=== PATIENT | male | born 1960 | race Caucasian/White ===

== ENCOUNTER 2021-03-13 21:57 | Emergency (ER) | payer MEDICAID, OTHER ==
[~2021-03-13] VITALS: Ht 175.3 cm; Wt 84.1 kg
[2021-03-13 21:58] VITALS: BP 123/70
[2021-03-13 23:06] LABS: BASOPHILS % (AUTO) 0.6 % (0.0-2.0); EOSINOPHILS % (AUTO) 2.1 % (1.0-6.0); HEMOGLOBIN 13.9 g/dL (13.5-17.5); LYMPHOCYTES # (AUTO) 2.8 K/uL (1.0-4.8); MEAN CORPUSCULAR HEMOGLOBIN 31.6 pg (26.0-34.0); MEAN CORPUSCULAR HGB CONC 34.8 G/dL (31.0-37.0); MEAN CORPUSCULAR VOLUME 91 fL (80-100); MONOCYTES # (AUTO) 0.7 K/uL (0.1-1.0); NEUTROPHILS # (AUTO) 4.4 K/uL (1.8-7.7); NEUTROPHILS % (AUTO) 54.3 % (40.0-70.0); PLATELET COUNT (AUTO) 234 K/uL (150-450); RED BLOOD CELL COUNT(AUTO) 4.41 MIL/uL (4.50-5.90); RED CELL DISTRIBUTION WIDTH 13.3 % (11.5-14.5)
[2021-03-13 23:22] LABS: ANION GAP 8 mmol/L (8-16); CALCIUM, TOTAL 8.7 mg/dL (8.8-10.5); CARBON DIOXIDE 29 mmol/L (22-29); CHLORIDE 103 mmol/L (98-107); CREATININE 0.95 mg/dL (0.60-1.30); GLOMERULAR FILTR. RATE CALC > 60 mL/min (>60); GLUCOSE,RANDOM 104 mg/dL (70-110); POTASSIUM 3.8 mmol/L (3.5-5.1); SODIUM SERUM 140 mmol/L (136-145); UREA NITROGEN, BLOOD 23 mg/dL (7-18)
[2021-03-13 23:29] LABS: ALANINE AMINOTRANSFERASE 80 U/L (12-78); ALBUMIN 4.2 g/dL (3.4-5.0); ALKALINE PHOSPHATASE 101 U/L (46-116); ASPARTATE AMINOTRANSFERASE 58 U/L (15-37); TOTAL PROTEIN, SERUM 7.7 g/dL (6.4-8.2)
== END 2021-03-13 23:11 | disposition left against medical advice (07) ==
LOC: EMS 21:57
DX: R44.0 Auditory hallucinations (principal); Z53.21 Procedure and treatment not carried out due to patient leaving prior to being seen by health care provider
CPT/HCPCS: 36415; 80053; 85025; G0480

== ENCOUNTER 2021-04-01 23:47 | Emergency (ER) | payer OTHER ==
[~2021-04-01] VITALS: Ht 172.7 cm; Wt 77.3 kg
[2021-04-02 00:51] LABS: BASOPHILS % (AUTO) 0.6 % (0.0-2.0); HEMATOCRIT 40.8 % (41-53); HEMOGLOBIN 13.9 g/dL (13.5-17.5); LYMPHOCYTES # (AUTO) 2.9 K/uL (1.0-4.8); MEAN CORPUSCULAR HEMOGLOBIN 31.5 pg (26.0-34.0); MEAN CORPUSCULAR HGB CONC 34.1 G/dL (31.0-37.0); MEAN CORPUSCULAR VOLUME 92 fL (80-100); MONOCYTES # (AUTO) 0.7 K/uL (0.1-1.0); MONOCYTES % (AUTO) 9.3 % (2.0-9.0); NEUTROPHILS # (AUTO) 4.1 K/uL (1.8-7.7); NEUTROPHILS % (AUTO) 51.1 % (40.0-70.0); PLATELET COUNT (AUTO) 201 K/uL (150-450); RED BLOOD CELL COUNT(AUTO) 4.42 MIL/uL (4.50-5.90); RED CELL DISTRIBUTION WIDTH 13.6 % (11.5-14.5)
[2021-04-02 00:55] LABS: ANION GAP 7 mmol/L (8-16); CALCIUM, TOTAL 8.8 mg/dL (8.8-10.5); CARBON DIOXIDE 30 mmol/L (22-29); CHLORIDE 107 mmol/L (98-107); CREATININE 1.26 mg/dL (0.60-1.30); GLOMERULAR FILTR. RATE CALC 58 mL/min (>60); GLUCOSE,RANDOM 117 mg/dL (70-110); POTASSIUM 4.4 mmol/L (3.5-5.1); SODIUM SERUM 144 mmol/L (136-145); UREA NITROGEN, BLOOD 21 mg/dL (7-18)
[2021-04-02 01:01] LABS: ALANINE AMINOTRANSFERASE 102 U/L (12-78); ALBUMIN 3.6 g/dL (3.4-5.0); ALKALINE PHOSPHATASE 106 U/L (46-116); ASPARTATE AMINOTRANSFERASE 58 U/L (15-37); BILIRUBIN,TOTAL 0.7 mg/dL (0.1-1.0); TOTAL PROTEIN, SERUM 7.1 g/dL (6.4-8.2)
[2021-04-02 04:28] VITALS: BP 127/83
== END 2021-04-02 04:41 | disposition home or self-care (01) ==
LOC: EMS 23:48
DX: R44.0 Auditory hallucinations (principal); F15.90 Other stimulant use, unspecified, uncomplicated; R00.2 Palpitations; I48.91 Unspecified atrial fibrillation; E11.9 Type 2 diabetes mellitus without complications; F17.210 Nicotine dependence, cigarettes, uncomplicated
CPT/HCPCS: 70450; 80053; 82962; 85025; 93005; 99285; G0480

== ENCOUNTER 2021-04-09 00:15 | Emergency (ER) | payer OTHER ==
[~2021-04-09] VITALS: Ht 172.7 cm; Wt 84.1 kg
[2021-04-09] MEDS ORDERED: MELA3TAB89 PO (00:22)
[2021-04-09] MEDS ORDERED: RISP1TAB48 PO (00:22)
[2021-04-09 00:35] LABS: GLUCOSE,POINT OF CARE 93 MG/DL (70-110)
[2021-04-09 02:18] LABS: COVID AG,FIA SOURCE NASOPHARYNGEAL
[2021-04-09 02:21] LABS: BASOPHILS % (AUTO) 0.8 % (0.0-2.0); EOSINOPHILS % (AUTO) 3.3 % (1.0-6.0); HEMATOCRIT 37.7 % (41-53); LYMPHOCYTES # (AUTO) 2.2 K/uL (1.0-4.8); LYMPHOCYTES % (AUTO) 38.4 % (22.0-44.0); MEAN CORPUSCULAR HEMOGLOBIN 31.5 pg (26.0-34.0); MEAN CORPUSCULAR HGB CONC 34.4 G/dL (31.0-37.0); MEAN CORPUSCULAR VOLUME 92 fL (80-100); MONOCYTES # (AUTO) 0.5 K/uL (0.1-1.0); MONOCYTES % (AUTO) 9.6 % (2.0-9.0); NEUTROPHILS # (AUTO) 2.7 K/uL (1.8-7.7); NEUTROPHILS % (AUTO) 47.9 % (40.0-70.0); PLATELET COUNT (AUTO) 172 K/uL (150-450); RED BLOOD CELL COUNT(AUTO) 4.12 MIL/uL (4.50-5.90); RED CELL DISTRIBUTION WIDTH 13.3 % (11.5-14.5)
[2021-04-09 02:27] LABS: ANION GAP 3 mmol/L (8-16); CALCIUM, TOTAL 8.4 mg/dL (8.8-10.5); CARBON DIOXIDE 30 mmol/L (22-29); CHLORIDE 105 mmol/L (98-107); CREATININE 0.93 mg/dL (0.60-1.30); GLOMERULAR FILTR. RATE CALC > 60 mL/min (>60); GLUCOSE,RANDOM 116 mg/dL (70-110); POTASSIUM 3.9 mmol/L (3.5-5.1); SODIUM SERUM 138 mmol/L (136-145); UREA NITROGEN, BLOOD 23 mg/dL (7-18)
[2021-04-09 02:27] LABS: AMPHET/METH SCREEN,URINE POSITIVE (NEGATIVE); BARBITURATE SCREEN, URINE NEGATIVE (NEGATIVE); BENZODIAZEPINES SCREEN,URINE NEGATIVE (NEGATIVE); CANNABINOID SCREEN,URINE NEGATIVE (NEGATIVE); COCAINE SCREEN,URINE NEGATIVE (NEGATIVE); METHADONE SCREEN, URINE NEGATIVE (NEGATIVE); OPIATE SCREEN,URINE NEGATIVE (NEGATIVE)
[2021-04-09 02:28] LABS: PHENCYCLIDINE SCREEN,URINE NEGATIVE (NEGATIVE)
[2021-04-09 02:33] LABS: ALANINE AMINOTRANSFERASE 116 U/L (12-78); ALBUMIN 3.7 g/dL (3.4-5.0); ALKALINE PHOSPHATASE 107 U/L (46-116); ASPARTATE AMINOTRANSFERASE 62 U/L (15-37); BILIRUBIN,TOTAL 0.8 mg/dL (0.1-1.0); TOTAL PROTEIN, SERUM 6.9 g/dL (6.4-8.2)
[2021-04-09 03:41] VITALS: BP 156/65
== END 2021-04-09 04:09 | disposition home or self-care (01) ==
LOC: EMS 00:16
DX: F20.9 Schizophrenia, unspecified (principal); Z20.822 Contact with and (suspected) exposure to COVID-19; F17.210 Nicotine dependence, cigarettes, uncomplicated; E11.9 Type 2 diabetes mellitus without complications; I48.91 Unspecified atrial fibrillation
CPT/HCPCS: 36415; 80053; 80307; 82962; 85025; 87426; 99284; G0480

== ENCOUNTER 2021-05-28 19:36 | Emergency (ER) | payer OTHER ==
[~2021-05-28] VITALS: Ht 172.7 cm; Wt 81.8 kg
[~2021-05-28 19:36] MED LIST: MELA3TAB89 PO; RISP1TAB48 PO
[2021-05-28 21:50] VITALS: BP 121/81
== END 2021-05-28 21:54 | disposition home or self-care (01) ==
LOC: EDUNIT# 19:36 → EMS 19:38
DX: F20.9 Schizophrenia, unspecified (principal); F17.210 Nicotine dependence, cigarettes, uncomplicated; F12.90 Cannabis use, unspecified, uncomplicated; F15.90 Other stimulant use, unspecified, uncomplicated; E11.9 Type 2 diabetes mellitus without complications; I48.91 Unspecified atrial fibrillation
CPT/HCPCS: 82962; 99284

== ENCOUNTER 2021-06-23 16:40 | Emergency (ER) | payer OTHER ==
[~2021-06-23] VITALS: Ht 172.7 cm; Wt 84.1 kg
[2021-06-23 16:49] VITALS: BP 163/83
[2021-06-23 19:41] LABS: BASOPHILS % (AUTO) 0.9 % (0.0-2.0); EOSINOPHILS % (AUTO) 3.4 % (1.0-6.0); HEMATOCRIT 37.3 % (41-53); HEMOGLOBIN 12.8 g/dL (13.5-17.5); LYMPHOCYTES # (AUTO) 2.5 K/uL (1.0-4.8); LYMPHOCYTES % (AUTO) 37.7 % (22.0-44.0); MEAN CORPUSCULAR HEMOGLOBIN 30.8 pg (26.0-34.0); MEAN CORPUSCULAR HGB CONC 34.3 G/dL (31.0-37.0); MEAN CORPUSCULAR VOLUME 90 fL (80-100); MONOCYTES # (AUTO) 0.7 K/uL (0.1-1.0); MONOCYTES % (AUTO) 10.5 % (2.0-9.0); NEUTROPHILS # (AUTO) 3.2 K/uL (1.8-7.7); NEUTROPHILS % (AUTO) 47.5 % (40.0-70.0); PLATELET COUNT (AUTO) 291 K/uL (150-450); RED BLOOD CELL COUNT(AUTO) 4.15 MIL/uL (4.50-5.90); RED CELL DISTRIBUTION WIDTH 13.2 % (11.5-14.5)
[2021-06-23 19:51] LABS: ANION GAP 8 mmol/L (8-16); CALCIUM, TOTAL 8.5 mg/dL (8.8-10.5); CARBON DIOXIDE 28 mmol/L (22-29); CHLORIDE 106 mmol/L (98-107); CREATININE 0.84 mg/dL (0.60-1.30); GLOMERULAR FILTR. RATE CALC > 60 mL/min (>60); GLUCOSE,RANDOM 103 mg/dL (70-110); POTASSIUM 3.6 mmol/L (3.5-5.1); SODIUM SERUM 142 mmol/L (136-145); UREA NITROGEN, BLOOD 29 mg/dL (7-18)
[2021-06-23 19:56] LABS: ALANINE AMINOTRANSFERASE 79 U/L (12-78); ALBUMIN 3.6 g/dL (3.4-5.0); ALKALINE PHOSPHATASE 144 U/L (46-116); ASPARTATE AMINOTRANSFERASE 46 U/L (15-37); BILIRUBIN,TOTAL 0.8 mg/dL (0.1-1.0); TOTAL PROTEIN, SERUM 7.9 g/dL (6.4-8.2)
== END 2021-06-23 20:40 | disposition left against medical advice (07) ==
LOC: EMS 16:43
DX: F20.9 Schizophrenia, unspecified (principal); E11.9 Type 2 diabetes mellitus without complications; I48.91 Unspecified atrial fibrillation; F12.90 Cannabis use, unspecified, uncomplicated; F15.90 Other stimulant use, unspecified, uncomplicated
CPT/HCPCS: 36415; 80053; 82962; 85025; 99283; G0480

== ENCOUNTER 2021-06-24 19:55 | Inpatient (IN) | payer MEDICAID, OTHER ==
[~2021-06-24] VITALS: Ht 172.7 cm; Wt 86.4 kg
[2021-06-24 20:34] LABS: BASOPHILS % (AUTO) 0.9 % (0.0-2.0); EOSINOPHILS % (AUTO) 3.2 % (1.0-6.0); HEMATOCRIT 35.6 % (41-53); HEMOGLOBIN 12.3 g/dL (13.5-17.5); LYMPHOCYTES # (AUTO) 2.4 K/uL (1.0-4.8); MEAN CORPUSCULAR HEMOGLOBIN 30.8 pg (26.0-34.0); MEAN CORPUSCULAR HGB CONC 34.4 G/dL (31.0-37.0); MEAN CORPUSCULAR VOLUME 90 fL (80-100); MONOCYTES # (AUTO) 0.8 K/uL (0.1-1.0); MONOCYTES % (AUTO) 10.4 % (2.0-9.0); NEUTROPHILS # (AUTO) 3.9 K/uL (1.8-7.7); NEUTROPHILS % (AUTO) 52.5 % (40.0-70.0); PLATELET COUNT (AUTO) 270 K/uL (150-450); RED BLOOD CELL COUNT(AUTO) 3.98 MIL/uL (4.50-5.90); RED CELL DISTRIBUTION WIDTH 13.2 % (11.5-14.5)
[2021-06-24 20:43] LABS: ANION GAP 7 mmol/L (8-16); CALCIUM, TOTAL 8.3 mg/dL (8.8-10.5); CARBON DIOXIDE 25 mmol/L (22-29); CHLORIDE 107 mmol/L (98-107); CREATININE 0.91 mg/dL (0.60-1.30); GLOMERULAR FILTR. RATE CALC > 60 mL/min (>60); GLUCOSE,RANDOM 105 mg/dL (70-110); POTASSIUM 3.5 mmol/L (3.5-5.1); SODIUM SERUM 139 mmol/L (136-145); UREA NITROGEN, BLOOD 27 mg/dL (7-18)
[2021-06-24 20:49] LABS: ALANINE AMINOTRANSFERASE 68 U/L (12-78); ALBUMIN 3.5 g/dL (3.4-5.0); ALKALINE PHOSPHATASE 144 U/L (46-116); ASPARTATE AMINOTRANSFERASE 43 U/L (15-37); BILIRUBIN,TOTAL 1.1 mg/dL (0.1-1.0); TOTAL PROTEIN, SERUM 7.4 g/dL (6.4-8.2)
[2021-06-24] MEDS ORDERED: LORazepam 2 MG TABLET PO ONE (21:30)
[2021-06-24] MEDS ORDERED: HALOPERIDOL 5 MG TABLET PO ONE (21:30)
[2021-06-24] MEDS ORDERED: BENZTROPINE MESYLATE 2 MG TABLET PO ONE (21:30)
[2021-06-25] MEDS ORDERED: OLANZapine 5 MG RAPDIS TABLET PO PRN
[2021-06-25] MEDS ORDERED: ZOLPIDEM TARTRATE 10 MG TABLET PO PRN
[2021-06-25] MEDS ORDERED: LORazepam 2 MG TABLET PO PRN
[2021-06-25 00:40] LABS: COVID AG,FIA SOURCE NASOPHARYNGEAL
[2021-06-25 02:01] LABS: CHOL/HDL RATIO 3.8 (4.2-7.3); CHOLESTEROL 107 mg/dL (131-200); HDL CHOLESTEROL 28 mg/dL (40-60); LDL CHOL (CALC.) 65 mg/dL (0-130); TRIGLYCERIDES 72 mg/dL (15-150)
[2021-06-25] MEDS ORDERED: PNEUMOCOCCAL VACCINE POLYVALENT 0.5 ML VIAL [PPSV23] IM. ONE (03:30)
[2021-06-25 03:46] VITALS: BP 129/60
[2021-06-25 10:26] VITALS: BP 115/67
[2021-06-25] MEDS ORDERED: CloNIDine HCL 0.1 MG TABLET PO PRN (10:30)
[2021-06-25] MEDS ORDERED: MAG HYDROX/AL HYDROX/SIMETH ES 30 ML SUSPENSION UDCUP PO PRN (10:30)
[2021-06-25] MEDS ORDERED: MELATONIN 3 MG TABLET PO PRN (10:30)
[2021-06-25] MEDS ORDERED: ACETAMINOPHEN 325 MG TABLET PO PRN (10:30)
[2021-06-25] MEDS ORDERED: DOCUSATE SODIUM 100 MG CAPSULE PO PRN (10:30)
[2021-06-25] MEDS ORDERED: NICOTINE 14 MG/24 HOUR PATCH TD PRN (10:30)
[2021-06-25] MEDS ORDERED: MAGNESIUM HYDROXIDE SUSPENSION 30 ML UDCUP PO PRN (10:30)
[2021-06-25] MEDS ORDERED: LOPERAMIDE HCL 2 MG CAPSULE PO PRN (10:30)
[2021-06-25] MEDS ORDERED: ALBUTEROL SULFATE HFA 90 MCG/PUFF 8 GM INHALER IH PRN (10:30)
[2021-06-25] MEDS ORDERED: GuaiFENesin/D-METHORPHAN [SUGAR-FREE] 200-20MG/10 ML SYRUP UDCUP PO PRN (10:30)
[2021-06-25] MEDS ORDERED: ONDANSETRON HCL 4 MG TABLET PO PRN (10:30)
[2021-06-25] MEDS ORDERED: PETROLATUM,WHITE 28 GM JELLY TP PRN (10:30)
[2021-06-25] MEDS ORDERED: IBUPROFEN 400 MG TABLET PO PRN (10:30)
[2021-06-25] MEDS: FLUoxetine HCL 20 MG CAPSULE PO SCH (12:24)
[2021-06-25] MEDS: SULFAMETHOX/TRIMETH DS 800-160 MG/TABLET PO SCH ×2 (12:24→17:28)
[2021-06-25] MEDS: CEPHALEXIN MONOHYDRATE 500 MG CAPSULE PO SCH ×2 (13:01→17:28)
[2021-06-25] MEDS ORDERED: CIPROFLOXACIN HCL 0.3% 2.5 ML OPHTHALMIC SOLUTION OD SCH (17:00)
[2021-06-25] MEDS: RisperiDONE 1 MG TABLET PO SCH (17:28)
[2021-06-25] MEDS: BACITRACIN 28 GM OINTMENT TP SCH (17:29)
[2021-06-25 17:53] VITALS: BP 132/71
[2021-06-25 20:28] VITALS: BP 132/71
[2021-06-26 04:30] VITALS: BP 111/62
[2021-06-26 08:32] VITALS: BP 126/64
[2021-06-26] MEDS: CIPROFLOXACIN HCL 0.3% 2.5 ML OPHTHALMIC SOLUTION OS SCH ×4 (09:32→20:24)
[2021-06-26] MEDS: CEPHALEXIN MONOHYDRATE 500 MG CAPSULE PO SCH ×3 (09:33→16:33)
[2021-06-26] MEDS: FLUoxetine HCL 20 MG CAPSULE PO SCH (09:33)
[2021-06-26] MEDS: BACITRACIN 28 GM OINTMENT TP SCH ×2 (09:33→16:31)
[2021-06-26] MEDS: SULFAMETHOX/TRIMETH DS 800-160 MG/TABLET PO SCH ×2 (09:33→16:31)
[2021-06-26] MEDS: RisperiDONE 1 MG TABLET PO SCH ×2 (09:33→16:31)
[2021-06-26 16:29] VITALS: BP 106/66
[2021-06-27 08:38] VITALS: BP 132/69
[2021-06-27] MEDS: CEPHALEXIN MONOHYDRATE 500 MG CAPSULE PO SCH ×3 (08:43→16:39)
[2021-06-27] MEDS: RisperiDONE 1 MG TABLET PO SCH ×2 (08:43→16:39)
[2021-06-27] MEDS: CIPROFLOXACIN HCL 0.3% 2.5 ML OPHTHALMIC SOLUTION OS SCH ×4 (08:43→22:09)
[2021-06-27] MEDS: SULFAMETHOX/TRIMETH DS 800-160 MG/TABLET PO SCH ×2 (08:43→16:38)
[2021-06-27] MEDS: FLUoxetine HCL 20 MG CAPSULE PO SCH (08:43)
[2021-06-27] MEDS: BACITRACIN 28 GM OINTMENT TP SCH ×2 (08:43→16:39)
[2021-06-27 16:29] VITALS: BP 121/61
[2021-06-28 01:47] VITALS: BP 140/79
[2021-06-28 09:18] VITALS: BP 133/64
[2021-06-28] MEDS: CEPHALEXIN MONOHYDRATE 500 MG CAPSULE PO SCH ×2 (09:26→12:32)
[2021-06-28] MEDS: FLUoxetine HCL 20 MG CAPSULE PO SCH (09:26)
[2021-06-28] MEDS: SULFAMETHOX/TRIMETH DS 800-160 MG/TABLET PO SCH (09:27)
[2021-06-28] MEDS: RisperiDONE 1 MG TABLET PO SCH (09:27)
[2021-06-28] MEDS: CIPROFLOXACIN HCL 0.3% 2.5 ML OPHTHALMIC SOLUTION OS SCH ×2 (09:28→12:33)
[2021-06-28] MEDS: BACITRACIN 28 GM OINTMENT TP SCH (09:29)
[2021-06-28] MEDS ORDERED: RISP1TAB48 PO (09:57)
[2021-06-28] MEDS ORDERED: FLUO20CA36 PO (10:03)
[2021-06-28] MEDS ORDERED: CEPH500C3 PO (10:04)
[2021-06-28] MEDS ORDERED: BACTDSB PO (10:05)
[2021-06-28] MEDS ORDERED: CILO2.5OS OS (10:06)
== END 2021-06-28 12:30 | disposition home or self-care (01) | DRG 750 ==
LOC: EMS 19:57 → B3A 06-25 00:27 → B2S 06-27 19:21
PROVIDERS: ADMIT Psychiatry & Neurology Child & Adolescent Psychiatry; ATTEND Psychiatry & Neurology Child & Adolescent Psychiatry
DX: F25.9 Schizoaffective disorder, unspecified (principal); R45.851 Suicidal ideations; E11.9 Type 2 diabetes mellitus without complications; D64.9 Anemia, unspecified; F17.210 Nicotine dependence, cigarettes, uncomplicated; F12.90 Cannabis use, unspecified, uncomplicated; F41.9 Anxiety disorder, unspecified; Z20.822 Contact with and (suspected) exposure to COVID-19; G47.00 Insomnia, unspecified; I48.0 Paroxysmal atrial fibrillation; H11.32 Conjunctival hemorrhage, left eye; S00.12XA Contusion of left eyelid and periocular area, initial encounter; X58.XXXA Exposure to other specified factors, initial encounter; Y93.89 Activity, other specified; Y92.89 Other specified places as the place of occurrence of the external cause; Y99.8 Other external cause status
CPT/HCPCS: 80053; 80061; 85025; 93970; 99285; G0480

== ENCOUNTER 2021-07-02 11:01 | Emergency (ER) | payer MEDICAID, OTHER ==
[~2021-07-02] VITALS: Ht 172.7 cm; Wt 68.6 kg
[~2021-07-02 11:01] MED LIST changes: +BACTDSB PO; +CEPH500C3 PO; +CILO2.5OS OS; +FLUO20CA36 PO; -MELA3TAB89 PO
[2021-07-02 11:02] VITALS: BP 139/64
[2021-07-02] MEDS ORDERED: KETOROLAC TROMETHAMINE 30 MG/ML VIAL IM ONE (13:00)
== END 2021-07-02 13:56 | disposition home or self-care (01) ==
LOC: EMS 11:10
DX: M79.671 Pain in right foot (principal); I48.91 Unspecified atrial fibrillation; E11.9 Type 2 diabetes mellitus without complications; F20.9 Schizophrenia, unspecified; F17.210 Nicotine dependence, cigarettes, uncomplicated; F12.90 Cannabis use, unspecified, uncomplicated; F19.90 Other psychoactive substance use, unspecified, uncomplicated
CPT/HCPCS: 96372; 99283; J1885

== ENCOUNTER 2023-10-10 09:47 | Inpatient (IN) | payer MEDICAID ==
[~2023-10-10] VITALS: Ht 172.7 cm; Wt 78.9 kg
[~2023-10-10 09:47] MED LIST changes: +CEPH-558 PO; -CEPH500C3 PO; -CILO2.5OS OS; +CIPR2.5D17 OS
[2023-10-10] MEDS ORDERED: HALOPERIDOL 5 MG TABLET PO PRN (13:00)
[2023-10-10] MEDS ORDERED: LORazepam 2 MG TABLET PO PRN (13:00)
[2023-10-10] MEDS ORDERED: ZOLPIDEM TARTRATE 10 MG TABLET PO PRN (13:00)
[2023-10-10 14:30] VITALS: BP 114/75; PULSE 89; RESP 18; TEMP 97.9; O2SAT 99
[2023-10-10 16:21] LABS: GLUCOMETER DEV NAME(LOC) BV2S.; GLUCOSE,POINT OF CARE 103 MG/DL (70-110)
[2023-10-10] MEDS ORDERED: IBUPROFEN 400 MG TABLET PO PRN (16:30)
[2023-10-10 16:40] VITALS: BP 140/69
[2023-10-10 17:45] VITALS: RESP 18
[2023-10-10] MEDS ORDERED: INFLUENZA VIRUS VACCINE QVS 2023-24 (6MO+)/PF 60 MCG/0.5 ML SYRINGE IM. ONE (18:00)
[2023-10-10 19:14] VITALS: BP 140/69; RESP 17
[2023-10-10 20:40] VITALS: BP 136/72; PULSE 61; RESP 18; TEMP 97.9; O2SAT 96
[2023-10-11 07:57] LABS: BASOPHILS % (AUTO) 0.6 % (0.0-2.0); EOSINOPHILS % (AUTO) 3.3 % (1.0-6.0); HEMATOCRIT 36.7 % (41-53); HEMOGLOBIN 13.3 g/dL (13.5-17.5); LYMPHOCYTES # (AUTO) 2.3 K/uL (1.0-4.8); LYMPHOCYTES % (AUTO) 44.2 % (22.0-44.0); MEAN CORPUSCULAR HEMOGLOBIN 32.2 pg (26.0-34.0); MEAN CORPUSCULAR HGB CONC 36.3 G/dL (31.0-37.0); MEAN CORPUSCULAR VOLUME 89 fL (80-100); MONOCYTES # (AUTO) 0.5 K/uL (0.1-1.0); MONOCYTES % (AUTO) 9.8 % (2.0-9.0); NEUTROPHILS # (AUTO) 2.2 K/uL (1.8-7.7); NEUTROPHILS % (AUTO) 42.1 % (40.0-70.0); PLATELET COUNT (AUTO) 182 K/uL (150-450); RED BLOOD CELL COUNT(AUTO) 4.14 MIL/uL (4.50-5.90); RED CELL DISTRIBUTION WIDTH 12.8 % (11.5-14.5); WHITE BLOOD COUNT (AUTO) 5.3 K/uL (4.5-11.0)
[2023-10-11 08:10] LABS: HEMOGLOBIN A1C 4.7 % (3.8-5.6)
[2023-10-11 08:12] VITALS: BP 140/87; PULSE 85; RESP 18; TEMP 97; O2SAT 100
[2023-10-11 08:21] LABS: ALANINE AMINOTRANSFERASE 32 U/L (12-78); ALBUMIN 3.4 g/dL (3.4-5.0); ALKALINE PHOSPHATASE 78 U/L (46-116); ANION GAP 3 mmol/L (8-16); ASPARTATE AMINOTRANSFERASE 24 U/L (15-37); CALCIUM, TOTAL 8.6 mg/dL (8.8-10.5); CARBON DIOXIDE 33 mmol/L (22-29); CHLORIDE 105 mmol/L (98-107); CHOL/HDL RATIO 2.7 (4.2-7.3); CHOLESTEROL 105 mg/dL (131-200); CREATININE 0.88 mg/dL (0.60-1.30); FREE T4 (FREE THYROXINE) 1.23 ng/dL (0.76-1.46); GLOMERULAR FILTR. RATE CALC > 60 mL/min (>60); GLUCOSE,RANDOM 83 mg/dL (70-110); HDL CHOLESTEROL 39 mg/dL (40-60); LDL CHOL (CALC.) 60 mg/dL (0-130); POTASSIUM 3.7 mmol/L (3.5-5.1); SODIUM SERUM 141 mmol/L (136-145); THYROID STIMULATING HORMONE 1.48 uIU/mL (0.36-3.74); TOTAL PROTEIN, SERUM 6.8 g/dL (6.4-8.2); TRIGLYCERIDES 29 mg/dL (15-150); UREA NITROGEN, BLOOD 19 mg/dL (7-18)
[2023-10-11] MEDS ORDERED: NICOTINE 14 MG/24 HOUR PATCH TD PRN (11:45)
[2023-10-11] MEDS ORDERED: ALBUTEROL SULFATE HFA 90 MCG/PUFF 8 GM INHALER IH PRN (11:45)
[2023-10-11] MEDS ORDERED: ACETAMINOPHEN 325 MG TABLET PO PRN (11:45)
[2023-10-11] MEDS ORDERED: CloNIDine HCL 0.1 MG TABLET PO PRN (11:45)
[2023-10-11] MEDS ORDERED: IBUPROFEN 400 MG TABLET PO PRN (11:45)
[2023-10-11] MEDS ORDERED: LOPERAMIDE HCL 2 MG CAPSULE PO PRN (11:45)
[2023-10-11] MEDS ORDERED: ONDANSETRON HCL 4 MG TABLET PO PRN (11:45)
[2023-10-11] MEDS ORDERED: MAG HYDROX/ALUMINUM HYD/SIMETH ES 30 ML SUSPENSION UDCUP PO PRN (11:45)
[2023-10-11] MEDS ORDERED: GuaiFENesin/D-METHORPHAN [SUGAR-FREE] 200-20MG/10 ML SYRUP UDCUP PO PRN (11:45)
[2023-10-11] MEDS ORDERED: DOCUSATE SODIUM 100 MG CAPSULE PO PRN (11:45)
[2023-10-11] MEDS ORDERED: MAGNESIUM HYDROXIDE SUSPENSION 30 ML UDCUP PO PRN (11:45)
[2023-10-11] MEDS ORDERED: PETROLATUM,WHITE 28 GM JELLY TP PRN (11:45)
[2023-10-11] MEDS: RisperiDONE 1 MG TABLET PO SCH ×2 (12:14→20:15)
[2023-10-11] MEDS: FLUoxetine HCL 20 MG CAPSULE PO SCH (20:15)
[2023-10-11 20:18] VITALS: BP 140/90; PULSE 88; RESP 17; TEMP 98; O2SAT 99
[2023-10-12 08:06] LABS: HEMOGLOBIN A1C 4.6 % (3.8-5.6)
[2023-10-12 08:11] VITALS: BP 141/83; PULSE 87; RESP 17; TEMP 97.6; O2SAT 99
[2023-10-12 08:18] LABS: THYROID STIMULATING HORMONE 1.58 uIU/mL (0.36-3.74)
[2023-10-12] MEDS: RisperiDONE 1 MG TABLET PO SCH ×2 (08:20→20:34)
[2023-10-12] MEDS: FLUoxetine HCL 20 MG CAPSULE PO SCH (20:34)
[2023-10-12 20:42] VITALS: BP 148/88; PULSE 79; RESP 18; TEMP 98.5; O2SAT 96
[2023-10-13 08:45] VITALS: BP 113/70; PULSE 72; RESP 17; TEMP 97.4; O2SAT 98
[2023-10-13] MEDS: RisperiDONE 1 MG TABLET PO SCH (09:40)
[2023-10-13] MEDS ORDERED: FLUO20CA36 PO (19:36)
[2023-10-13] MEDS ORDERED: RISP1TAB98 PO (19:36)
== END 2023-10-13 15:30 | disposition home or self-care (01) | DRG 750 ==
LOC: B2S 14:29
PROVIDERS: ADMIT Psychiatry & Neurology Psychiatry; ATTEND Psychiatry & Neurology Psychiatry
PROC: GZHZZZZ Group Psychotherapy (ICD-10-PCS; principal; 2023-10-11)
DX: F25.1 Schizoaffective disorder, depressive type (principal); E11.9 Type 2 diabetes mellitus without complications; D64.9 Anemia, unspecified; G47.00 Insomnia, unspecified; F41.9 Anxiety disorder, unspecified; Z79.899 Other long term (current) drug therapy; Z87.820 Personal history of traumatic brain injury
CPT/HCPCS: 80053; 80061; 82962; 83036; 84439; 84443; 85025